=== PATIENT | female | born 1945 | race Caucasian/White ===

== ENCOUNTER 2024-12-09 09:55 | Inpatient (IN) | payer MEDICARE, SELFPAY ==
[2024-12-09] VITALS (12 sets, daily range): BP systolic 95–128; BP diastolic 63–92; PULSE 72–125; RESP 16–22; TEMP 36.4–36.9; O2SAT 96–98; BMI 39.5; BMI 39.1
--- NOTE | 2024-12-09 10:31 | EKG12_ITS ---
Test Reason : SOB Blood Pressure : */* mmHG Vent. Rate : 99 BPM Atrial Rate : * BPM P-R Int : * ms QRS Dur : 64 ms QT Int : 368 ms P-R-T Axes : * 57 97 degrees QTcB Int : 472 ms Atrial fibrillation with premature ventricular or aberrantly conducted complexes Abnormal ECG Confirmed by DEVENDRA HAUSER, LIAM ([id number]), continuity editor LEEANN NOBLES ([id number]) on 12/14/2024 7:13:16 AM Referred By: JESSENIA Confirmed By: LIAM RAMSAY MD
--- NOTE | 2024-12-09 10:35 | EDS_ITS ---
HPI History of Present Illness Chief Complaint: Shortness of Breath Informant: patient and family Narrative Narrative: Presents with daughter for dyspnea been going on for last few weeks. A week ago had chest pain overnight that resolved that same night. History of A-fib diagnosed a year ago followed by [facility] Dr. Ulloa. She is on Eliquis twice a day and has been taking her medications. She is on metoprolol tartrate 50 mg twice a day. She is on Lasix 20 mg daily however states has not been taking it as she should. She did take it this morning. Intermittent cough. She describes elective cardioversion this past July by her cardio logist. She states she was feeling good after her cardioversion. She does not feel her dysrhythmia. Denies racing heart or palpitations. Occasional lightheaded with standing. Reporting nontraumatic left-sided back pain also since before . Using ice and heat that does help. Using Tylenol. No pain down the legs. No dysuria no frequency. She reports 15 pound weight gain in the last month. Prior similar symptoms: Yes PFSH PFS Medical History Kidney stone Restless legs GERD (gastroesophageal reflux disease) Anxiety CHF (congestive heart failure) Afib Home Medications ?Medication ?Instructions ?Recorded ?Last Taken ?Type apixaban 5 mg tablet (Eliquis) 5 mg PO BID BLOOD THINNER 12/09/24 12/09/24 History clobetasol 0.05 % topical ointment 1 applic topical DAILY SKIN 12/09/24 12/08/24 History IRRITATION diphenhydramine 25 1 tab PO QHS PRN sleep 12/09/24 Unknown History mg-acetaminophen 500 mg tablet (Acetaminophen PM) fluoxetine 20 mg capsule 20 mg PO DAILY MOOD 12/09/24 12/09/24 History fluticasone propionate 50 1 spray intranasal BID PRN allergy 12/09/24 12/08/24 History mcg/actuation nasal symptoms spray,suspension (Flonase Allergy Relief) furosemide 20 mg tablet (Lasix) 20 mg PO DAILY FLUID RETENTION 12/09/24 12/08/24 History metoprolol tartrate 50 mg tablet 50 mg PO Q12H BLOOD PRESSURE 12/09/24 12/09/24 History pantoprazole 40 mg tablet,delayed 40 mg PO DAILY HEARTBURN 12/09/24 12/08/24 History release (Protonix) ropinirole 1 mg tablet 1 mg PO QHS RESTLESS LEG SYNDROME 12/09/24 12/08/24 History Allergy/AdvReac Type Severity Reaction Status Date / Time morphine Allergy Mild CHEST PAIN Verified 12/09/24 10:00 Family History (Updated 12/09/24 @ 13:57 by Ana Maria Jurado) Brother Pancreatic cancer Type 2 diabetes mellitus Sister Lupus Family History no significant family his Surgical History Hx of cholecystectomy Social History (Updated 12/09/24 @ 13:57 by Ana Maria Jurado) household members: none financial difficulty paying for basics: not very hard current occupational status: retired Smoking Status: Former smoker ROS ROS ED Constitutional Constitutional ED: Denies chills, fever(s) or sweats ENT ENT ED: Denies sore throat Cardiovascular Cardiovascular: Reports chest pain, leg edema and orthopnea; Denies palpitations or racing heartbeat Respiratory/Chest Respiratory/Chest: Reports cough, dyspnea and orthopnea; Denies dyspnea on exertion Gastrointestinal Gastrointestinal: Denies abdominal pain, diarrhea, nausea or vomiting Genitourinary Genitourinary ED: Denies dysuria, hematuria or urinary frequency Musculoskeletal Musculoskeletal: Reports back pain; Denies extremity pain or neck pain Integumentary Denies rash or wounds Neurologic Neurologic: Denies headache(s), paresthesias or weakness EXAM Physical Exam Const Vital Signs: 12/09/24 09:56 12/09/24 10:19 12/09/24 11:45 Temperature 97.5 F L Temperature Source Temporal Pulse Rate 107 H 96 Respiratory Rate 16 22 H Respiratory Effort Short of Breath Respiratory Depth Normal Respiratory Pattern Tachypnea Blood Pressure 126/92 H Blood Pressure Mean 103 Pulse Ox 98 96 Oxygen Delivery Method Room Air Room Air Positive well nourished and well developed General Appearance ED: well developed and NAD HEENT Reports moist mucous membranes normocephalic and atraumatic Eyes General Eye ED: Yes normal appearance of both eyes Neck full ROM Chest Wall Chest: Negative for tenderness Resp normal respiratory effort and normal air movement Effort and Inspection: symmetric chest movement; Negative for respiratory distress Cardio regular rate and no murmurs Rhythm: abnormal rhythm Peripheral Pulses: pulses 2+ throughout GI normal to inspection, nondistended, normoactive bowel sounds and non-tender Palpation: Negative for guarding or rebound tenderness present Extremity normal to inspection Extremity Narrative: Minimal lower extremity edema General Extremety ED: Yes edema; Negative for tenderness General Extremity: edema Neuro oriented x3 and no sensory deficits noted Sensorium / Orientation: awake and alert Skin no rashes or lesions noted and no wounds MDM MDM MDM Narrative Medical decision making narrative: Interventions / MDM: Differential diagnosis: CHF exacerbation, atrial fibrillation, hypoxia, flank pain, nephrolithiasis Diagnosis considered but do not suspect: Pulmonary embolism, pneumonia however image studies negative. My EKG interpretation: A-fib rate of 99, no ST or T wave changes. Imaging independently reviewed and interpreted by myself: 2 view chest x-ray: No pleural effusion also read by radiology. CTA chest: No PE, no infiltrates no effusion. CT abdomen pelvis IV contrast: Nephrolithiasis without obstructive process. External documents reviewed: MyChart on patient's phone BMP and echocardiogram. Test considered but not ordered:N/A ED course: Patient rate controlled A-fib afebrile 98% on room air. She describes orthopnea symptoms with leg swelling and weight gain. Likely recurrent A-fib after cardioversion she has not followed up with her associate director of sales. She states she was normal sinus after the cardioversion. Took her Eliquis and her Lasix today however decreased compliance with her diuretic. She had chest pain a week ago. Will check chest x-ray, labs cardiac enzyme and BNP. Urine sent due to her nontraumatic back pain. 1145: Chest x-ray no pleural effusion labs creatinine 1.23 with GFR of 45. No old for comparison however review from my chart on patient's phone May 2024 creatinine 0.96 GFR of 60. BNP 616. As noted no pleural effusion. She also had echocardiogram on MyChart from summer last year EF of 60%. Occult blood on her urine no infection. She has had a history of kidney stones. Discussed further workup with your back pain with CT scan for which she wishes to pursue. This was ordered. Will ambulate the patient with a pulse ox and reevaluate. 1155: Per nursing with ambulation patient dropped to 84% and was symptomatic. She is on Eliquis, lower suspicion for PE. However with her being sent for CT scan abdomen pelvis, will add CTA chest with the abdomen pelvis. Will need admission for hypoxia. 1250: CT angiogram chest negative for PE. No acute process. CT abdomen pelvis nephrolithiasis without obstructive process. Discussed with patient results. With her hypoxia will add additional dose of IV diuretics. Will discuss with hospitalist for admission. I spoke with Dr. Corral for admission. Re-evaluation: stable Disposition discussed with patient/family/significant other: Patient and daughter Case discussed with consulting clinician: Hospitalist This note was generated with [employer] dictation software. It may contain incorrect words, spelling, and punctuation that were not noted in checking the note before signing. Lab Data Attestation: I reviewed the patient's lab results. Labs: Laboratory Results - last 24 hr 12/09/24 12/09/24 10:43 12:53 WBC 7.1 RBC 3.61 L Hgb 10.1 L Hct 33.3 L MCV 92.2 MCH 28.0 MCHC 30.3 L RDW Std Deviation 47.5 H RDW Coeff of Kristian 14.0 Plt Count 293 MPV 9.4 Immature Gran % (Auto) 0.400 Neut % (Auto) 57.2 Lymph % (Auto) 26.7 [place] % (Auto) 10.5 H Eos % (Auto) 4.5 Baso % (Auto) 0.7 Absolute Neuts (auto) 4.1 Absolute Lymphs (auto) 1.89 Nucleated RBC % 0 Sodium 141 Potassium 3.9 Chloride 108 H Carbon Dioxide 28.0 Anion Gap 5 BUN 19 H Creatinine 1.23 H Estim Creat Clear Calc 46.03 Est GFR (MDRD) Af Amer 54 L Est GFR (MDRD) Non-Af 45 L BUN/Creatinine Ratio 15.4 Glucose 115 H Calcium 9.1 Troponin I High Sens 9 9 B-Natriuretic Peptide 616.6 H Urine Color Straw Urine Clarity Clear Urine pH 6.0 Ur Specific [place] 1.010 Urine Protein 15 H Urine Glucose (UA) Normal Urine Ketones Negative Urine Occult Blood 10 H Urine Nitrite Negative Urine Bilirubin Negative Urine Urobilinogen Normal Ur Leukocyte Esterase Negative Urine RBC 0 SEEN Urine WBC 0-5 SEEN Ur Squamous Epith Cells 0-5 SEEN Urine Bacteria 0 SEEN Urine Mucus 0 SEEN Radiography Diagnostic Testing: Clinical Impression(s) from Imaging Studies Chest X-Ray 12/09/24 11:00 IMPRESSION: No acute abnormality is seen. Electronically Signed: Vance Nino MD at 11:14 EST , Abdomen/Pelvis CT 12/09/24 11:57 IMPRESSION: Status post cholecystectomy. 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 Nonobstructive bilateral intrarenal calculi more prominent in the lower pole of the left kidney. Electronically Signed: Vance Nino MD at 12:38 EST , Chest CTA 12/09/24 11:57 IMPRESSION: Findings suggestive of minimal scarring in the lingular segment of the left upper lobe. Coronary artery calcification. Electronically Signed: Vance Nino MD at 12:39 EST , Discharge Plan Dx/Rx/DC Orders Clinical Impression: CHF exacerbation, Atrial fibrillation with normal ventricular rate, Hypoxia, Nephrolithiasis, Flank pain, Hematuria Disposition Disposition: Acute Care Hospital [facility] Discharge Date/Time: 12/09/24 13:20
[2024-12-09 10:48] LABS: Bacteria 0 SEEN /hpf (None Seen); Mucous, Urine 0 SEEN /hpf (<or=2+); Red Blood Cells-Urine 0 SEEN /hpf (0-5)
[2024-12-09 10:54] LABS: Absolute Lymphocyte Count 1.89 X10^3/uL (0.83-4.51); Absolute Neutrophil Count 4.1 X10^3/uL (2.0-7.7); Basophil# 0.05 X10^3/uL; Basophil% 0.7 % (0-1); Eosinophil# 0.32 X10^3/uL; Eosinophils% 4.5 % (0-5); Hematocrit 33.3 % (37-47); Hemoglobin 10.1 g/dL (12.0-15.0); Lymphocyte # 1.89 X10^3/ul (0.83-4.51); Lymphocyte % 26.7 % (19-41); Mean Corp Hgb Conc 30.3 g/dL (32-36); Mean Corpuscular Volume 92.2 fL (81-99); Mean Platelet Vol. 9.4 fl (6.2-12.0); Monocyte# 0.74 X10^3/uL; Monocyte% 10.5 % (0-10); NRBC Flagged by Analyzer 0 % (0-5); Neutrophil # 4.05 X10^3/uL (2.7-7.7); Neutrophil % 57.2 % (47-70); Platelet Count 293 K/mm3 (150-450); RBC Distribution Width SD 47.5 fl (35.1-43.9); Red Blood Count 3.61 M/mm3 (4.2-5.4); White Blood Count 7.1 K/mm3 (4.4-11.0)
[2024-12-09 10:57] LABS: Color, Urine Straw (Yellow); Glucose, Dipstick Normal (Normal); Ketone-Dipstick Negative (Negative); Leukocyte Esterase-Dipstick Negative /ul (Negative); Nitrite-Dipstick Negative (Negative); Occult Blood-Urine 10 /ul (Negative); Protein-Dipstick 15 mg/dl (Negative); Urine Bilirubin Dipstick Negative (Negative); Urine Clarity Clear (Clear); Urine Urobilinogen Normal (Normal)
--- NOTE | 2024-12-09 11:00 | RAD_ITS ---
STUDY: X-RAY CHEST REASON FOR EXAM: Female, 79 years old. Sob TECHNIQUE: PA and lateral views of the chest. COMPARISON: None. FINDINGS: EKG electrodes are seen. The lungs are clear and expanded. There is no demonstrated pleural abnormality. Normal size heart. Normal mediastinum and dre. Normal visualized pulmonary arteries. There is atherosclerotic calcification of the aortic arch with tortuosity. There is demineralization of the osseous structures. Normal visualized ribs, clavicles, and shoulders. There is no demonstrated abnormality of the visualized soft tissue structures of the upper abdomen. RAD/Chest PA and Lateral IMPRESSION: No acute abnormality is seen. Electronically Signed: Vance Nino MD at 11:14 EST ,
[2024-12-09 11:08] LABS: Anion Gap 5 (5-15); BUN 19 mg/dL (7-18); BUN/Creat Ratio 15.4 RATIO (10-20); Calcium,Total 9.1 mg/dL (8.5-10.1); Chloride 108 mmol/L (98-107); Creatinine, Serum 1.23 mg/dL (0.55-1.02); EST Glomerular Filtration Rate 45 mL/min (>60); Est Glom Filt Rate - Afr Amer 54 mL/min (>60); Estimated Creatinine Clearance 46.03 ml/min; Glucose 115 mg/dL (74-106); Potassium 3.9 mmol/L (3.5-5.1); Sodium Level 141 mmol/L (136-145); Troponin-I HS (w/2H Reflex) 9 pg/mL (3.0-54.0)
[2024-12-09 11:16] LABS: BNP,B-Type NATRIURETIC PEPTIDE 616.6 pg/mL (0-100)
[2024-12-09 11:46] LABS: Squamous Epithelial Cells - UA 0-5 SEEN /hpf (5-10); White Blood Cells 0-5 SEEN /hpf (0-5)
--- NOTE | 2024-12-09 11:57 | CT_ITS ---
STUDY: CTA CHEST REASON FOR EXAM: Female, 79 years old. Hypoxia RADIATION DOSAGE (If Supplied By Facility): CTDIvol = ( 18.8 ) mGy, DLP = ( 736.74 ) mGycm TECHNIQUE: The examination was performed with the intravenous administration of IV 100mL Isovue-370. Post-processing of the angiographic images was performed, with multiplanar reformation and 3D reconstruction. Individualized dose optimization techniques were used for this CT. COMPARISON: None. FINDINGS: Normal enhancement of the main pulmonary artery and right and left pulmonary arteries. Normal enhancement of the bilateral peripheral pulmonary arteries. There is no demonstrated pulmonary embolism. Normal thoracic aorta and visualized great vessels. There is no demonstrated aortic dissection. There are calcifications of the coronary arteries. Normal mediastinum. Normal hilar regions. Normal visualized trachea and bronchi. The lungs are well expanded. Minimal increased markings in the lingula segment of the left upper lobe suggestive of a linear scarring. Normal pleura. Normal chest wall structures. There are degenerative changes of thoracic spine. Normal visualized upper abdomen. CT/CTA Chest W/WO Contrast IMPRESSION: Findings suggestive of minimal scarring in the lingular segment of the left upper lobe. Coronary artery calcification. Electronically Signed: Vance Nino MD at 12:39 EST ,
--- NOTE | 2024-12-09 11:57 | CT_ITS ---
STUDY: CT ABDOMEN AND PELVIS WITH CONTRAST REASON FOR EXAM: Female, 79 years old. Flank pain, hematuria. 15 pound weight gain. Back pain. RADIATION DOSAGE (If Supplied By Facility): CTDIvol = ( 23.82 ) mGy, DLP = ( 1164.64 ) mGycm TECHNIQUE: Transaxial images were obtained from the dome of the diaphragm to the symphysis pubis without oral contrast. IV 100mL Isovue-370 was administered. Sagittal and coronal images were reconstructed. Individualized dose optimization techniques were used for this CT. COMPARISON: None. FINDINGS: Minimal increased linear markings suggest some mild linear scarring. Coronary artery calcification. There is decreased attenuation of the liver consistent with steatosis. The patient is status post cholecystectomy. Normal spleen. Normal pancreas. Varices seen in the lesser curvature of the stomach. Normal bilateral adrenal glands. There is a 8.7 mm calculus in the lower pole calyx of the left kidney. Tiny calculus in the lower pole of the right kidney There is a small hiatal hernia. Normal small intestine. There are multiple colonic diverticula consistent with diverticulosis. The appendix is visualized and appears normal. There is diffuse atherosclerotic calcification of the abdominal aorta and visceral branches, without a demonstrated aneurysm. Normal inferior vena cava. There is a small retroperitoneal lymphadenopathy with enlarged nodes no greater than 10mm in the short axis diameter. Normal urinary bladder. Small bilateral benign-appearing inguinal lymph nodes. Normal abdominal wall. There are degenerative changes of the visualized lumbar spine. CT/Abdomen/Pelvis W IV Cont ONLY IMPRESSION: Status post cholecystectomy. 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 Nonobstructive bilateral intrarenal calculi more prominent in the lower pole of the left kidney. Electronically Signed: Vance Nino MD at 12:38 EST ,
[2024-12-09 12:46] LABS: Reflex Troponin-HS? (from REC) Y
[2024-12-09] MEDS: Furosemide 40 MG/4 ML Vial IV ×3 (13:04→21:03)
--- NOTE | 2024-12-09 13:12 | HP.PCM.HOS_ITS ---
HPI - General HPI Narrative CECILIA CALABRESE, is a 79 F who presents [facility] Medical History Kidney stone Restless legs GERD (gastroesophageal reflux disease) Anxiety CHF (congestive heart failure) Afib Home Medications ?Medication ?Instructions ?Recorded ?Last Taken ?Type apixaban 5 mg tablet (Eliquis) 5 mg PO BID 12/09/24 Unknown History clobetasol 0.05 % topical ointment 1 applic topical DAILY 12/09/24 Unknown History fluoxetine 20 mg capsule 20 mg PO DAILY 12/09/24 Unknown History fluticasone propionate 50 1 spray intranasal BID PRN allergy 12/09/24 Unknown History mcg/actuation nasal symptoms spray,suspension (Flonase Allergy Relief) furosemide 20 mg tablet (Lasix) 20 mg PO DAILY 12/09/24 Unknown History metoprolol tartrate 50 mg tablet 50 mg PO Q12H 12/09/24 Unknown History pantoprazole 40 mg tablet,delayed 40 mg PO DAILY 12/09/24 Unknown History release (Protonix) ropinirole 1 mg tablet 1 mg PO QHS 12/09/24 Unknown History Allergy/AdvReac Type Severity Reaction Status Date / Time morphine Allergy Mild CHEST PAIN Verified 12/09/24 10:00 Family History no significant family his Surgical History Hx of cholecystectomy Social History household members: none current occupational status: retired Smoking Status: Former smoker Vital Signs Vital Signs Vital Signs: 12/09/24 09:56 12/09/24 10:19 12/09/24 11:45 Temperature 97.5 F L Temperature Source Temporal Pulse Rate 107 H 96 Respiratory Rate 16 22 H Respiratory Effort Short of Breath Respiratory Depth Normal Respiratory Pattern Tachypnea Blood Pressure 126/92 H Blood Pressure Mean 103 Pulse Ox 98 96 Oxygen Delivery Method Room Air Room Air 12/09/24 13:00 12/09/24 13:09 Temperature 97.9 F Temperature Source Pulse Rate 110 H 110 H Respiratory Rate 21 H 21 H Respiratory Effort Respiratory Depth Respiratory Pattern Blood Pressure 128/90 H 128/90 H Blood Pressure Mean 102 102 Pulse Ox 98 98 Oxygen Delivery Method Room Air Weight Weight: 107.864 kg Body Mass Index (BMI) 39.5 Results Lab / Micro Data 12/09/24 10:43 12/09/24 10:43 Labs: Laboratory Results - last 24 hr 12/09/24 10:43: WBC 7.1, RBC 3.61 L, Hgb 10.1 L, Hct 33.3 L, MCV 92.2, MCH 28.0, MCHC 30.3 L, RDW Std Deviation 47.5 H, RDW Coeff of Kristian 14.0, Plt Count 293, MPV 9.4, Immature Gran % (Auto) 0.400, Neut % (Auto) 57.2, Lymph % (Auto) 26.7, [place] % (Auto) 10.5 H, Eos % (Auto) 4.5, Baso % (Auto) 0.7, Absolute Neuts (auto) 4.1, Absolute Lymphs (auto) 1.89, Nucleated RBC % 0, Sodium 141, Potassium 3.9, C hloride 108 H, Carbon Dioxide 28.0, Anion Gap 5, BUN 19 H, Creatinine 1.23 H, Estim Creat Clear Calc 46.03, Est GFR (MDRD) Af Amer 54 L, Est GFR (MDRD) Non-Af 45 L, BUN/Creatinine Ratio 15.4, Glucose 115 H, Calcium 9.1, Troponin I High Sens 9, B-Natriuretic Peptide 616.6 H, Urine Color Straw, Urine Clarity Clear, Urine pH 6.0, Ur Specific [place] 1.010, Urine Protein 15 H, Urine Glucose (UA) Normal, Urine Ketones Negative, Urine Occult Blood 10 H, Urine Nitrite Negative, Urine Bilirubin Negative, Urine Urobilinogen Normal, Ur Leukocyte Esterase Negative, Urine RBC 0 SEEN, Urine WBC 0-5 SEEN, Ur Squamous Epith Cells 0-5 SEEN, Urine Bacteria 0 SEEN, Urine Mucus 0 SEEN Imaging Radiology Impression Chest X-Ray 12/09/24 11:00 IMPRESSION: No acute abnormality is seen. Electronically Signed: Vance Nino MD at 11:14 EST , Abdomen/Pelvis CT 12/09/24 11:57 IMPRESSION: Status post cholecystectomy. 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 Nonobstructive bilateral intrarenal calculi more prominent in the lower pole of the left kidney. Electronically Signed: Vance Nino MD at 12:38 EST , Chest CTA 12/09/24 11:57 IMPRESSION: Findings suggestive of minimal scarring in the lingular segment of the left upper lobe. Coronary artery calcification. Electronically Signed: Vance Nino MD at 12:39 EST ,
--- NOTE | 2024-12-09 13:12 | PCM.HP.STD ---
HPI - General General Date of Admission: 12/09/24 Date of Service: 12/09/24 Chief Complaint: Shortness of breath HPI Narrative CECILIA CALABRESE, is a 79 F with past medical history signal for paroxysmal atrial fibrillation, chronic congestive heart failure with preserved ejection fraction who presented with shortness of breath. Per patient symptoms have been ongoing for the past couple of weeks. Patient has noticed increasing shortness of breath with minimal activity. Patient also did complain of swelling involving both lower extremities. Patient elected to present to the emergency department due to worsening symptoms. On further questioning patient admitted to not being compliant with therapy including her Lasix. Workup in the ED came back consistent with acute congestive heart failure admitted to a monitored bed for further management [facility] Medical History Kidney stone Restless legs GERD (gastroesophageal reflux disease) Anxiety CHF (congestive heart failure) Afib Home Medications ?Medication ?Instructions ?Recorded ?Last Taken ?Type apixaban 5 mg tablet (Eliquis) 5 mg PO BID BLOOD THINNER 12/09/24 12/09/24 History clobetasol 0.05 % topical ointment 1 applic topical DAILY SKIN 12/09/24 12/08/24 History IRRITATION diphenhydramine 25 1 tab PO QHS PRN sleep 12/09/24 Unknown History mg-acetaminophen 500 mg tablet (Acetaminophen PM) fluoxetine 20 mg capsule 20 mg PO DAILY MOOD 12/09/24 12/09/24 History fluticasone propionate 50 1 spray intranasal BID PRN allergy 12/09/24 12/08/24 History mcg/actuation nasal symptoms spray,suspension (Flonase Allergy Relief) furosemide 20 mg tablet (Lasix) 20 mg PO DAILY FLUID RETENTION 12/09/24 12/08/24 History metoprolol tartrate 50 mg tablet 50 mg PO Q12H BLOOD PRESSURE 12/09/24 12/09/24 History pantoprazole 40 mg tablet,delayed 40 mg PO DAILY HEARTBURN 12/09/24 12/08/24 History release (Protonix) ropinirole 1 mg tablet 1 mg PO QHS RESTLESS LEG SYNDROME 12/09/24 12/08/24 History Allergy/AdvReac Type Severity Reaction Status Date / Time morphine Allergy Mild CHEST PAIN Verified 12/09/24 10:00 Family History (Updated 12/09/24 @ 13:57 by Ana Maria Jurado) Brother Pancreatic cancer Type 2 diabetes mellitus Sister Lupus Family History no significant family his Surgical History Hx of cholecystectomy Social History (Updated 12/09/24 @ 13:57 by Ana Maria Jurado) household members: none financial difficulty paying for basics: not very hard current occupational status: retired Smoking Status: Former smoker ROS ROS Narrative GENERAL: denies fever, chills, night sweats, HEENT: denies headache, sinus congestion, RESPIRATORY: shortness of breath, dyspnea on exertion CARDIAC: denies chest pain, palpitations, orthopnea, GASTROINTESTINAL: denies abdominal pain, nausea, GENITOURINARY: denies dysuria, urgency, frequency, EXTREMITY: denies swelling MUSCULOSKELETAL: denies current joint pain or tenderness NEUROLOGIC: denies focal numbness, weakness, tingling HEMATOLOGIC: denies easy bruising and/or hemorrhage INTEGUMENT: denies rashes PSYCHIATRIC: denies suicidal or homicidal ideation Vital Signs Vital Signs Vital Signs: 12/09/24 09:56 12/09/24 10:19 12/09/24 11:45 Temperature 97.5 F L Temperature Source Temporal Pulse Rate 107 H 96 Respiratory Rate 16 22 H Respiratory Effort Short of Breath Respiratory Depth Normal Respiratory Pattern Tachypnea Blood Pressure 126/92 H Blood Pressure Mean 103 Pulse Ox 98 96 Oxygen Delivery Method Room Air Room Air 12/09/24 13:00 12/09/24 13:09 Temperature 97.9 F Temperature Source Pulse Rate 110 H 110 H Respiratory Rate 21 H 21 H Respiratory Effort Respiratory Depth Respiratory Pattern Blood Pressure 128/90 H 128/90 H Blood Pressure Mean 102 102 Pulse Ox 98 98 Oxygen Delivery Method Room Air Weight Weight: 107.864 kg Body Mass Index (BMI) 39.5 Physical Exam Narrative GENERAL: cooperative HEENT: Atraumatic; normocephalic EYES; Anicteric, Normal Conjunctiva NECK; supple, normal thyroid, RESPIRATORY: Diminished to auscultation CARDIOVASCULAR: Irregularly irregular, tachycardic GI: soft, normoactive bowel sounds, : No Renal angle tenderness; EXTREMITIES: sera, no clubbing, MUSCULOSKELETAL: no muscle wasting NEURO: Awake; no lateralizing signs. SKIN: No Rash PSYCH; Flat affect Results Lab / Micro Data 12/09/24 10:43 12/09/24 10:43 Labs: Laboratory Results - last 24 hr 12/09/24 10:43: WBC 7.1, RBC 3.61 L, Hgb 10.1 L, Hct 33.3 L, MCV 92.2, MCH 28.0, MCHC 30.3 L, RDW Std Deviation 47.5 H, RDW Coeff of Kristian 14.0, Plt Count 293, MPV 9.4, Immature Gran % (Auto) 0.400, Neut % (Auto) 57.2, Lymph % (Auto) 26.7, Bertie % (Auto) 10.5 H, Eos % (Auto) 4.5, Baso % (Auto) 0.7, Absolute Neuts (auto) 4.1, Absolute Lymphs (auto) 1.89, Nucleated RBC % 0, Sodium 141, Potassium 3.9, Chloride 108 H, Carbon Dioxide 28.0, Anion Gap 5, BUN 19 H, Creatinine 1.23 H, Estim Creat Clear Calc 46.03, Est GFR (MDRD) Af Amer 54 L, Est GFR (MDRD) Non-Af 45 L, BUN/Creatinine Ratio 15.4, Glucose 115 H, Calcium 9.1, Troponin I High Sens 9, B-Natriuretic Peptide 616.6 H, Urine Color Straw, Urine Clarity Clear, Urine pH 6.0, Ur Specific [place] 1.010, Urine Protein 15 H, Urine Glucose (UA) Normal, Urine Ketones Negative, Urine Occult Blood 10 H, Urine Nitrite Negative, Urine Bilirubin Negative, Urine Urobilinogen Normal, Ur Leukocyte Esterase Negative, Urine RBC 0 SEEN, Urine WBC 0-5 SEEN, Ur Squamous Epith Cells 0-5 SEEN, Urine Bacteria 0 SEEN, Urine Mucus 0 SEEN Imaging Radiology Impression Chest X-Ray 12/09/24 11:00 IMPRESSION: No acute abnormality is seen. Electronically Signed: Vance Nino MD at 11:14 EST , Abdomen/Pelvis CT 12/09/24 11:57 IMPRESSION: Status post cholecystectomy. 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 Nonobstructive bilateral intrarenal calculi more prominent in the lower pole of the left kidney. Electronically Signed: Vance Nino MD at 12:38 EST , Chest CTA 12/09/24 11:57 IMPRESSION: Findings suggestive of minimal scarring in the lingular segment of the left upper lobe. Coronary artery calcification. Electronically Signed: Vance Nino MD at 12:39 EST , Assessment & Plan Assessment/Plan (1) Nephrolithiasis: (2) Flank pain: (3) Hematuria: (4) Atrial fibrillation with normal ventricular rate: (5) CHF exacerbation: PLAN: Plan Patient is a 79-year-old lady presenting with progressive shortness of breath and bipedal edema 1. Acute on chronic congestive heart failure with preserved ejection fraction ? Patient has been admitted to monitored bed management initiated with fluid restriction, strict input and output, daily weights, diuretic therapy. Ordered echo for EF assessment. Also ordered serial cardiac enzymes to rule out ischemia as a possible frustrating course. Patient was counseled on the need to be compliant with therapy including fluid salts and medications. 2. Paroxysmal A-fib with variable rates ? Patient is on metoprolol for rate control as well as apixaban for systemic anticoagulation did continue with both 3. Hematuria ? Secondary to nephrolithiasis CT of the abdomen and pelvis demonstrated nonobstructing bilateral intrarenal calculi more prominent in the lower pole of the left kidney 4. Hypertension ? Blood pressure controlled, home medications continued with dose adjustment as needed 5. GERD ? Patient is on PPI continue 6. Class II obesity with BMI of 39.1 ? Complicating care weight loss advised 7. Restless leg syndrome ? Patient is on ropinirole 8. Allergic rhinitis ? Patient is on fluticasone did continue 9. Anemia ? Secondary to chronic disorder. Did order for iron studies as well as B12 levels. Subsequently monitoring H&H and transfuse if patient becomes symptomatic or hemoglobin falls below 7 10. Renal failure ? Chronicity uncertain patient does not have any old records to compare with monitoring with daily BMPs 11. DVT prophylaxis ? On apixaban Time spent in the patient's overall evaluation,decision-making process, review of diagnostic data, adjustment of management, discussion with other providers, nursing nursing and ancillary staff involved in patient's care documentation, 75 Minutes Advance planning; did discuss with the patient and family regarding advanced directives as well as CODE STATUS. Did explain the various scenarios involved ( FULL CODE, DNR CCA, DNR CCA with no intubation, and DNR CC and what each meant) patient elected to remain full code with CPR and intubation if warranted n. Order was placed. Time spent on discussion 16 minutes. Charges/Coding Multi Select Codes Visit Charges Visit Charges: 19186 [facility] Hospitalists' Procedures Procedures: 87131 Advncd Care Plan 30 Min
[2024-12-09 13:15] LABS: Troponin-I HS 9 pg/mL (3.0-54.0)
--- NOTE | 2024-12-09 13:38 | ECHOCS_ITS ---
Version 2 Reason For Study: Dyspnea/SOB Procedure This was a 2D Doppler, Color Flow transthoracic echocardiogram. The study was technically difficult. Contrast injection was performed. Exam performed portable in patient room. Left Ventricle Normal LV size. The estimated ejection fraction is 65 %. Diastolic function is indeterminate. No regional wall motion abnormalities noted. Right Ventricle Normal RV size. Normal systolic function. Atria There is mild biatrial dilatation. Hypermobile atrial septum. Bubble contrast study is negative for PFO/ASD. Mitral Valve There is no mitral valve stenosis. No mitral valve insufficiency. Tricuspid Valve There is no tricuspid stenosis. Mild tricuspid valve insufficiency. Pulmonary artery systolic pressure is 50 mmHg. Aortic Valve Trisinus/trileaflet aortic valve. There is no aortic stenosis. No aortic valve insufficiency. Pulmonic Valve
[2024-12-09] MEDS: Metoprolol Tartrate 50 MG Tablet PO (17:16)
[2024-12-09 17:34] LABS: Troponin-I HS 9 pg/mL (3.0-54.0)
[2024-12-09] MEDS: dilTIAZem CD 120 MG Capsule PO (18:54)
[2024-12-09] MEDS: APIXABAN 5 MG TABLET PO (21:03)
[2024-12-09] MEDS: Acetaminophen 325 MG Tablet 650 MG PO (21:03)
[2024-12-09] MEDS: Pramipexole Di-HCl 0.5 MG Tablet PO (21:03)
[2024-12-09] MEDS: MELATONIN 3 MG TABLET PO (21:03)
[2024-12-10 03:02] VITALS: BP 107/54; PULSE 101; RESP 15; TEMP 36.9; O2SAT 95
[2024-12-10] MEDS: Furosemide 40 MG/4 ML Vial IV ×3 (05:33→20:38)
[2024-12-10 06:54] LABS: Absolute Neutrophil Count 3.9 X10^3/uL (2.0-7.7); Basophil# 0.03 X10^3/uL; Basophil% 0.5 % (0-1); Eosinophil# 0.27 X10^3/uL; Eosinophils% 4.1 % (0-5); Hematocrit 29.6 % (37-47); Hemoglobin 9.3 g/dL (12.0-15.0); Lymphocyte % 24.2 % (19-41); Mean Corp Hgb Conc 31.4 g/dL (32-36); Mean Corpuscular Hgb 27.9 pg (27.0-32.0); Mean Corpuscular Volume 88.9 fL (81-99); Mean Platelet Vol. 10.2 fl (6.2-12.0); Monocyte# 0.76 X10^3/uL; Monocyte% 11.5 % (0-10); NRBC Flagged by Analyzer 0 % (0-5); Neutrophil # 3.94 X10^3/uL (2.7-7.7); Neutrophil % 59.4 % (47-70); Platelet Count 264 K/mm3 (150-450); RBC Distribution Width CV 13.9 % (11.6-14.6); RBC Distribution Width SD 45.1 fl (35.1-43.9); Red Blood Count 3.33 M/mm3 (4.2-5.4); White Blood Count 6.6 K/mm3 (4.4-11.0)
--- NOTE | 2024-12-10 07:46 | PCM.PN.HOSP ---
Reason for Visit Reason for Visit: Diagnoses Unspecified atrial fibrillation (12/09/24) Heart failure, unspecified (12/09/24) Calculus of kidney (12/09/24) Unspecified abdominal pain (12/09/24) Hematuria, unspecified (12/09/24) Subjective Subjective Patient is a 79-year-old lady admitted with progressive shortness of breath diagnosed with acute congestive heart failure. Patient also has history of paroxysmal A-fib heart rate has been ranging from 110-140 added Cardizem to her treatment regimen. Diagnostic data reviewed this a.m. significant for magnesium of 1.3 additional replacement Objective Data Objective Data Vital Signs: Vital Signs Temp Pulse Resp BP Pulse Ox O2 Del Method 98.5 F 101 H 15 107/54 L 95 Room Air 12/10/24 03:02 12/10/24 03:02 12/10/24 03:02 12/10/24 03:02 12/10/24 03:02 12/10/24 03:02 Oxygen Delivery Method Room Air Weight: 106.7 kg Body Mass Index (BMI) 39.1 Intake & Output: Intake and Output for Last 24 Hours 12/08/24 12/09/24 12/10/24 23:59 23:59 23:59 Intake Total 755 / 755 150 / 150 Output Total 300 / 300 Balance 455 / 455 150 / 150 Lab / Micro Data 12/10/24 05:40 12/10/24 05:40 Labs: Laboratory Results - last 24 hr 12/09/24 10:43: WBC 7.1, RBC 3.61 L, Hgb 10.1 L, Hct 33.3 L, MCV 92.2, MCH 28.0, MCHC 30.3 L, RDW Std Deviation 47.5 H, RDW Coeff of Kristian 14.0, Plt Count 293, MPV 9.4, Immature Gran % (Auto) 0.400, Neut % (Auto) 57.2, Lymph % (Auto) 26.7, [place] % (Auto) 10.5 H, Eos % (Auto) 4.5, Baso % (Auto) 0.7, Absolute Neuts (auto) 4.1, Absolute Lymphs (auto) 1.89, Nucleated RBC % 0, Sodium 141, Potassium 3.9, Chloride 108 H, Carbon Dioxide 28.0, Anion Gap 5, BUN 19 H, Creatinine 1.23 H, Estim Creat Clear Calc 46.03, Est GFR (MDRD) Af Amer 54 L, Est GFR (MDRD) Non-Af 45 L, BUN/Creatinine Ratio 15.4, Glucose 115 H, Calcium 9.1, Troponin I High Sens 9, B-Natriuretic Peptide 616.6 H, Urine Color Straw, Urine Clarity Clear, Urine pH 6.0, Ur Specific [place] 1.010, Urine Protein 15 H, Urine Glucose (UA) Normal, Urine Ketones Negative, Urine Occult Blood 10 H, Urine Nitrite Negative, Urine Bilirubin Negative, Urine Urobilinogen Normal, Ur Leukocyte Esterase Negative, Urine RBC 0 SEEN, Urine WBC 0-5 SEEN, Ur Squamous Epith Cells 0-5 SEEN, Urine Bacteria 0 SEEN, Urine Mucus 0 SEEN 12/09/24 12:53: Troponin I High Sens 9 12/09/24 16:38: Troponin I High Sens 9 12/10/24 05:40: WBC 6.6, RBC 3.33 L, Hgb 9.3 L, Hct 29.6 L, MCV 88.9, MCH 27.9, MCHC 31.4 L, RDW Std Deviation 45.1 H, RDW Coeff of Kristian 13.9, Plt Count 264, MPV 10.2, Immature Gran % (Auto) 0.300, Neut % (Auto) 59.4, Lymph % (Auto) 24.2, [place] % (Auto) 11.5 H, Eos % (Auto) 4.1, Baso % (Auto) 0.5, Absolute Neuts (auto) 3.9, Absolute Lymphs (auto) 1.60, Nucleated RBC % 0 Radiography Diagnostic Testing: Radiology Impression Chest X-Ray 12/09/24 11:00 IMPRESSION: No acute abnormality is seen. Electronically Signed: Vance Nino MD at 11:14 EST , Abdomen/Pelvis CT 12/09/24 11:57 IMPRESSION: Status post cholecystectomy. 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 Nonobstructive bilateral intrarenal calculi more prominent in the lower pole of the left kidney. Electronically Signed: Vance Nino MD at 12:38 EST , Chest CTA 12/09/24 11:57 IMPRESSION: Findings suggestive of minimal scarring in the lingular segment of the left upper lobe. Coronary artery calcification. Electronically Signed: Vance Nino MD at 12:39 EST , Physical Exam Narrative GENERAL: cooperative HEENT: Atraumatic; normocephalic EYES; Anicteric, Normal Conjunctiva NECK; supple, normal thyroid, RESPIRATORY: Diminished to auscultation CARDIOVASCULAR: Irregularly irregular, tachycardic GI: soft, normoactive bowel sounds, : No Renal angle tenderness; EXTREMITIES: sera, no clubbing, MUSCULOSKELETAL: no muscle wasting NEURO: Awake; no lateralizing signs. SKIN: No Rash PSYCH; Flat affect Assessment & Plan Assessment/Plan (1) Nephrolithiasis: (2) Flank pain: (3) Hematuria: (4) Atrial fibrillation with normal ventricular rate: (5) CHF exacerbation: PLAN: Plan Patient is a 79-year-old lady presenting with progressive shortness of breath and bipedal edema 1. Acute on chronic congestive heart failure with preserved ejection fraction ? Patient has been admitted to monitored bed management initiated with fluid restriction, strict input and output, daily weights, diuretic therapy. Ordered echo for EF assessment. Also ordered serial cardiac enzymes to rule out ischemia as a possible frustrating course. Patient was counseled on the need to be compliant with therapy including fluid restriction and medications. ? 12/10/2024; patient responded to diuretic therapy. Echo was ordered on admission results pending 2. Paroxysmal A-fib with variable rates ? Patient is on metoprolol for rate control as well as apixaban for systemic anticoagulation did continue with both 12/10/2024; patient heart rates not well-controlled I did Cardizem to treatment regimen 3. Hematuria ? Secondary to nephrolithiasis CT of the abdomen and pelvis demonstrated nonobstructing bilateral intrarenal calculi more prominent in the lower pole of the left kidney 4. Hypertension ? Blood pressure controlled, home medications continued with dose adjustment as needed 5. GERD ? Patient is on PPI continue 6. Class II obesity with BMI of 39.1 ? Complicating care weight loss advised 7. Restless leg syndrome ? Patient is on ropinirole 8. Allergic rhinitis ? Patient is on fluticasone did continue 9. Anemia ? Secondary to chronic disorder. Did order for iron studies as well as B12 levels. Subsequently monitoring H&H and transfuse if patient becomes symptomatic or hemoglobin falls below 7 10. Renal failure ? Chronicity uncertain patient does not have any old records to compare with monitoring with daily BMPs ? 12/10/2024; slight improvement in kidney function 11. DVT prophylaxis ? On apixaban 12. Hypomagnesemia -Corrected for protocol, repeat labs ordered in a.m. for follow-up Time spent in the patient's overall evaluation,decision-making process, review of diagnostic data, adjustment of management, discussion with other providers, nursing nursing and ancillary staff involved in patient's care documentation, 50 Minutes Charges/Coding Visit Charges Inpatient E&M: 10883 Subs Hosp L3
[2024-12-10 07:48] LABS: Anion Gap 9 (5-15); BUN 22 mg/dL (7-18); BUN/Creat Ratio 19.3 RATIO (10-20); Calcium,Total 9.1 mg/dL (8.5-10.1); Chloride 103 mmol/L (98-107); Creatinine, Serum 1.14 mg/dL (0.55-1.02); EST Glomerular Filtration Rate 49 mL/min (>60); Est Glom Filt Rate - Afr Amer 59 mL/min (>60); Estimated Creatinine Clearance 49.36 ml/min; Glucose 121 mg/dL (74-106); Magnesium 1.3 mg/dL (1.6-2.6); Phosphorus 3.7 mg/dL (2.5-4.9); Potassium 3.5 mmol/L (3.5-5.1); Sodium Level 139 mmol/L (136-145)
[2024-12-10] MEDS: FLUoxetine 20 MG Capsule PO (08:59)
[2024-12-10 09:00] VITALS: BP 105/56; PULSE 97; RESP 16; TEMP 36.4; O2SAT 94
[2024-12-10] MEDS: dilTIAZem CD 120 MG Capsule PO ×2 (09:00→20:36)
[2024-12-10] MEDS: Pantoprazole Sodium 40 MG Tablet PO (09:00)
[2024-12-10] MEDS: Metoprolol Tartrate 50 MG Tablet PO ×2 (09:00→20:37)
[2024-12-10] MEDS: APIXABAN 5 MG TABLET PO ×2 (09:00→20:36)
[2024-12-10] MEDS: Magnesium Sulfate 2 GM in Dextrose 5%-Water (100mL Bag) 100 ML IV (11:24)
--- NOTE | 2024-12-10 13:15 | CASEMGMT ---
RN SUBHA TECHNICAL SALES SUPPORT MANAGER SUBHA?to room to meet with patient for initial transition planning/care coordination assessment. RN CM?introduced self and role at [facility]. Pt voices understanding and consents to assessment?at this time. Pt up ad jeff in room when RN SUBHA entered room. Pt then sat on edge of bed during assessment. Pt is A/O at this time and answers all questions appropriately. Care providers, pharmacy, and demographics verified/updated at this time. Strata:?1 PCP: Dr Soriano Specialists: Dr Ulloa, geospatial applications developer @ [facility]. He also goes to [place], [place]. 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 Dtr's name is Monica. Living Arrangements: Lives alone in one-story home w/basement where the laundry is. Dtr has been assisting with the laundry. Pt is independent w/ADL's and all other IADL's and manages her own medications. Transportation:?Pt states drives self and states no transportation concerns at this time. Dtr, Monica, will take her home @ dc. DME: Denies using any DME and denies needs. She states she does have a gadget she ordered off of [employer] that checks her HR and connects to her phone. Pt states no need for further DME at this time. She does not have home O2. Is currently on RA. Pt states if it would be needed @ dc, she has no preference of DME co. HHC/SNF: No hx. No needs identified. Pt Link: Discussed Pt Link with pt and she is interested in this. Referral placed. Pt wishes to return home and states has no concerns with going home at time of discharge. CM?to follow for any further discharge planning/needs. Pt voices no further concerns/needs at this time. Advised pt to ask for CM?if any further questions/concerns/needs arise. Voices understanding. PLAN: Home w/Pt Link Arielle PEREZ RN, CM
[2024-12-10 14:23] VITALS: BP 91/48; PULSE 68; RESP 16; TEMP 36.4; O2SAT 96
[2024-12-10] MEDS: Magnesium Chloride 64 MG Delay Rel.Tablet 128 MG PO (20:36)
[2024-12-10 20:37] VITALS: BP 129/72; PULSE 82
[2024-12-10] MEDS: Pramipexole Di-HCl 0.5 MG Tablet PO (20:38)
[2024-12-10] MEDS: MELATONIN 3 MG TABLET PO (20:54)
[2024-12-10 21:00] VITALS: BP 129/72; PULSE 82; RESP 20; TEMP 36.8; O2SAT 97
[2024-12-11 06:00] VITALS: BP 111/60; PULSE 106; RESP 16; TEMP 36.6; O2SAT 96
[2024-12-11] MEDS: Furosemide 40 MG/4 ML Vial IV (06:02)
[2024-12-11 07:27] VITALS: O2SAT 96
--- NOTE | 2024-12-11 08:06 | PCM.PN.HOSP ---
Reason for Visit Reason for Visit: Diagnoses Unspecified atrial fibrillation (12/09/24) Heart failure, unspecified (12/09/24) Calculus of kidney (12/09/24) Unspecified abdominal pain (12/09/24) Hematuria, unspecified (12/09/24) Subjective Subjective Patient seen has responded to treatment well so far. Plan is for patient to be discharged home. Heart rate remains controlled Objective Data Objective Data Vital Signs: Vital Signs Temp Pulse Resp BP Pulse Ox O2 Del Method 97.9 F 106 H 16 111/60 96 Room Air 12/11/24 06:00 12/11/24 06:00 12/11/24 06:00 12/11/24 06:00 12/11/24 06:00 12/11/24 06:00 Oxygen Delivery Method Room Air Weight: 106.7 kg Body Mass Index (BMI) 39.1 Intake & Output: Intake and Output for Last 24 Hours 12/09/24 12/10/24 12/11/24 23:59 23:59 23:59 Intake Total 755 / 755 854 / 1094 490 / 490 Output Total 300 / 300 Balance 455 / 455 854 / 1094 490 / 490 Lab / Micro Data 12/10/24 05:40 12/10/24 05:40 Radiography Diagnostic Testing: Radiology Impression Echocardiogram 12/09/24 13:38 Interpretation Summary The estimated ejection fraction is 65 %. Diastolic function is indeterminate. There is mild biatrial dilatation. Ordering Physician: Tom Corral Performed By: Augie Prater RCS Physical Exam Narrative GENERAL: cooperative HEENT: Atraumatic; normocephalic EYES; Anicteric, Normal Conjunctiva NECK; supple, normal thyroid, RESPIRATORY: Diminished to auscultation CARDIOVASCULAR: Irregularly irregular, tachycardic GI: soft, normoactive bowel sounds, : No Renal angle tenderness; EXTREMITIES: sera, no clubbing, MUSCULOSKELETAL: no muscle wasting NEURO: Awake; no lateralizing signs. SKIN: No Rash PSYCH; Flat affect Assessment & Plan Assessment/Plan (1) Nephrolithiasis: (2) Flank pain: (3) Hematuria: (4) Atrial fibrillation with normal ventricular rate: (5) CHF exacerbation: PLAN: Plan Patient is a 79-year-old lady presenting with progressive shortness of breath and bipedal edema 1. Acute on chronic congestive heart failure with preserved ejection fraction ? Patient has been admitted to monitored bed management initiated with fluid restriction, strict input and output, daily weights, diuretic therapy. Ordered echo for EF assessment. Also ordered serial cardiac enzymes to rule out ischemia as a possible frustrating course. Patient was counseled on the need to be compliant with therapy including fluid restriction and medications. ? 12/10/2024; patient responded to diuretic therapy. Echo was ordered on admission results pending The estimated ejection fraction is 65 %. Diastolic function is indeterminate. There is mild biatrial dilatation. 2. Paroxysmal A-fib with variable rates ? Patient is on metoprolol for rate control as well as apixaban for systemic anticoagulation did continue with both 12/10/2024; patient heart rates not well-controlled I did Cardizem to treatment regimen 3. Hematuria ? Secondary to nephrolithiasis CT of the abdomen and pelvis demonstrated nonobstructing bilateral intrarenal calculi more prominent in the lower pole of the left kidney 4. Hypertension ? Blood pressure controlled, home medications continued with dose adjustment as needed 5. GERD ? Patient is on PPI continue 6. Class II obesity with BMI of 39.1 ? Complicating care weight loss advised 7. Restless leg syndrome ? Patient is on ropinirole 8. Allergic rhinitis ? Patient is on fluticasone did continue 9. Anemia ? Secondary to chronic disorder. Did order for iron studies as well as B12 levels. Subsequently monitoring H&H and transfuse if patient becomes symptomatic or hemoglobin falls below 7 10. Renal failure ? Chronicity uncertain patient does not have any old records to compare with monitoring with daily BMPs ? 12/10/2024; slight improvement in kidney function 11. DVT prophylaxis ? On apixaban 12. Hypomagnesemia -Corrected for protocol, repeat labs ordered in a.m. for follow-up Time spent in the patient's overall evaluation,decision-making process, review of diagnostic data, adjustment of management, discussion with other providers, nursing nursing and ancillary staff involved in patient's care documentation, 38 Minutes
[2024-12-11 08:30] VITALS: BP 105/60; PULSE 88; RESP 16; TEMP 36.6; O2SAT 94
[2024-12-11] MEDS: Acetaminophen 325 MG Tablet 650 MG PO (08:32)
[2024-12-11 08:42] LABS: Absolute Lymphocyte Count 1.58 X10^3/uL (0.83-4.51); Absolute Neutrophil Count 3.9 X10^3/uL (2.0-7.7); Basophil# 0.04 X10^3/uL; Basophil% 0.6 % (0-1); Eosinophil# 0.28 X10^3/uL; Eosinophils% 4.1 % (0-5); Hematocrit 30.5 % (37-47); Hemoglobin 9.4 g/dL (12.0-15.0); Lymphocyte # 1.58 X10^3/ul (0.83-4.51); Lymphocyte % 23.4 % (19-41); Mean Corp Hgb Conc 30.8 g/dL (32-36); Mean Corpuscular Hgb 27.9 pg (27.0-32.0); Mean Corpuscular Volume 90.5 fL (81-99); Mean Platelet Vol. 10.3 fl (6.2-12.0); Monocyte# 0.95 X10^3/uL; Monocyte% 14.1 % (0-10); NRBC Flagged by Analyzer 0 % (0-5); Neutrophil # 3.89 X10^3/uL (2.7-7.7); Neutrophil % 57.5 % (47-70); Platelet Count 270 K/mm3 (150-450); RBC Distribution Width CV 14.1 % (11.6-14.6); RBC Distribution Width SD 45.9 fl (35.1-43.9); Red Blood Count 3.37 M/mm3 (4.2-5.4); White Blood Count 6.8 K/mm3 (4.4-11.0)
--- NOTE | 2024-12-11 08:42 | PCM.DC.SUM ---
Providers Date of Admission: 12/09/24 Date of Discharge: 12/11/24 Primary Care Physician: Dr. Nic Soriano, DO Reason For Visit: CHF Diagnosis Discharge Diagnosis (1) Nephrolithiasis: Status: Acute Code(s): N20.0 - Calculus of kidney (2) Flank pain: Status: Acute Code(s): R10.9 - Unspecified abdominal pain (3) Hematuria: Status: Acute Code(s): R31.9 - Hematuria, unspecified (4) Atrial fibrillation with normal ventricular rate: Status: Acute Code(s): I48.91 - Unspecified atrial fibrillation (5) CHF exacerbation: Status: Chronic Code(s): I50.9 - Heart failure, unspecified Plan Patient is a 79-year-old lady presenting with progressive shortness of breath and bipedal edema 1. Acute on chronic congestive heart failure with preserved ejection fraction ? Patient has been admitted to monitored bed management initiated with fluid restriction, strict input and output, daily weights, diuretic therapy. Ordered echo for EF assessment. Also ordered serial cardiac enzymes to rule out ischemia as a possible frustrating course. Patient was counseled on the need to be compliant with therapy including fluid restriction and medications. ? 12/10/2024; patient responded to diuretic therapy. Echo was ordered on admission results pending The estimated ejection fraction is 65 %. Diastolic function is indeterminate. There is mild biatrial dilatation. 2. Paroxysmal A-fib with variable rates ? Patient is on metoprolol for rate control as well as apixaban for systemic anticoagulation did continue with both 12/10/2024; patient heart rates not well-controlled I did Cardizem to treatment regimen ? 12/11/2024; patient heart rate had improved at the time of discharge prescription was written for Cardizem CD1 20 mg twice daily. Patient instructed to call her primary care as well as primary hospitality coordinator for subsequent adjustment of therapy 3. Hematuria ? Secondary to nephrolithiasis CT of the abdomen and pelvis demonstrated nonobstructing bilateral intrarenal calculi more prominent in the lower pole of the left kidney 4. Hypertension ? Blood pressure controlled, home medications continued with dose adjustment as needed 5. GERD ? Patient is on PPI continue 6. Class II obesity with BMI of 39.1 ? Complicating care weight loss advised 7. Restless leg syndrome ? Patient is on ropinirole 8. Allergic rhinitis ? Patient is on fluticasone did continue 9. Anemia ? Secondary to chronic disorder. Did order for iron studies as well as B12 levels. Subsequently monitoring H&H and transfuse if patient becomes symptomatic or hemoglobin falls below 7 10. Renal failure ? Chronicity uncertain patient does not have any old records to compare with monitoring with daily BMPs ? 12/10/2024; slight improvement in kidney function 11. DVT prophylaxis ? On apixaban 12. Hypomagnesemia -Corrected for protocol, repeat labs ordered in a.m. for follow-up Time spent in the patient's overall evaluation,decision-making process, review of diagnostic data, adjustment of management, discussion with other providers, nursing nursing and ancillary staff involved in patient's care documentation, 38 Minutes Medications at Discharge Home Medications apixaban 5 mg tablet (Eliquis) 5 mg PO BID BLOOD THINNER 12/09/24 clobetasol 0.05 % topical ointment 1 applic topical DAILY SKIN IRRITATION 12/09/24 diphenhydramine 25 mg-acetaminophen 500 mg tablet (Acetaminophen PM) 1 tab PO QHS PRN sleep 12/09/24 fluoxetine 20 mg capsule 20 mg PO DAILY MOOD 12/09/24 fluticasone propionate 50 mcg/actuation nasal spray,suspension (Flonase Allergy Relief) 1 spray intranasal BID PRN allergy symptoms 12/09/24 metoprolol tartrate 50 mg tablet 50 mg PO Q12H BLOOD PRESSURE 12/09/24 pantoprazole 40 mg tablet,delayed release (Protonix) 40 mg PO DAILY HEARTBURN 12/09/24 ropinirole 1 mg tablet 1 mg PO QHS RESTLESS LEG SYNDROME 12/09/24 diltiazem HCl 120 mg capsule,extended release 24 hr 120 mg PO Q12 #60 caps 12/11/24 furosemide 20 mg tablet (Lasix) 20 mg PO BID FLUID RETENTION #120 tabs 12/11/24 magnesium chloride 64 mg (magnesium chloride) tablet,delayed release (Mag 64) 128 mg (2 x 64 mg) PO BID #30 tabs 12/11/24 Physical Exam Narrative GENERAL: cooperative HEENT: Atraumatic; normocephalic EYES; Anicteric, Normal Conjunctiva NECK; supple, normal thyroid, RESPIRATORY: Diminished to auscultation CARDIOVASCULAR: Irregularly irregular, tachycardic GI: soft, normoactive bowel sounds, : No Renal angle tenderness; EXTREMITIES: edema, no clubbing, MUSCULOSKELETAL: no muscle wasting NEURO: Awake; no lateralizing signs. SKIN: No Rash PSYCH; Flat affect Weight / BMI Weight Weight: 106.7 kg Body Mass Index (BMI) 39.1 ABG / Lab / Microbiology Data 12/10/24 05:40 12/10/24 05:40 Radiography Diagnostic Testing: Radiology Impression Echocardiogram 12/09/24 13:38 Interpretation Summary The estimated ejection fraction is 65 %. Diastolic function is indeterminate. There is mild biatrial dilatation. Ordering Physician: Tom Corral Performed By: Augie Prater RCS D/C Instructions Discharge Diet: 8 Cup Fluid Restriction and 2000 mg Sodium Diet Discharge Activity: Return to Normal Activity Call your doctor if you observe: Fever of 101 or Higher, Shortness of breath, Fainting spells and Chest pain DC O2, CPAP, BIPAP Needs Home O2 Discharge instructions: No Meaningful Use Info Meaningful Use Meaningful Use Diagnoses (Choose all that apply): CHF CHF MAXIMILIAN/ARB ordered at discharge?: No Reason MAXIMILIAN/ARB not ordered?: Not indicated Documented LVEF (%): 65 Ischemic Stroke Statin Dosing Therapy Reference: STATIN DOSE THERAPY REFERENCE: * Patients > 75 years receive moderate or high dose statin therapy. * Patients 75 years or YOUNGER should receive HIGH intensity statin dose unless contraindicated. You will be required to document reason for non-treatment if statin daily dose does not meet guidelines. HIGH DOSE STATIN THERAPY DAILY Atorvastatin > than or = to 40 mg Rosuvastatin > than or = to 20 mg Amlodipine + Atorvastatin > than or = to 2.5/40 mg Ezetimibe + Simvastatin 10/80 mg Simvastatin 80mg Discharge Plan Admission Admit Date/Time: 12/09/24 12:54 Attending Provider: Tom Corral Primary Care Provider: Nic Soriano Discharge Orders/Prescriptions Prescriptions: New diltiazem HCl 120 mg Capsule,Extended Release 24hr 120 mg PO Q12 Qty: 60 0RF magnesium chloride [Mag 64] 64 mg Tablet,Delayed Release (Dr/Ec) 128 mg PO BID Qty: 30 0RF Continued metoprolol tartrate 50 mg tablet 50 mg PO Q12H fluoxetine 20 mg capsule 20 mg PO DAILY Eliquis 5 mg tablet 5 mg PO BID fluticasone propionate [Flonase Allergy Relief] 50 mcg/actuation spray,suspension 1 spray intranasal BID PRN (Reason: allergy symptoms) Rx Instructions: administer into each nostril pantoprazole [Protonix] 40 mg tablet,delayed release (DR/EC) 40 mg PO DAILY ropinirole 1 mg tablet 1 mg PO QHS clobetasol 0.05 % ointment 1 applic topical DAILY diphenhydramine-acetaminophen [Acetaminophen PM] 25-500 mg tablet 1 tab PO QHS PRN (Reason: sleep) Changed furosemide [Lasix] 20 mg tablet 20 mg PO BID Qty: 120 0RF Referrals / Follow Up: Nic Soriano DO [Primary Care Provider] - Within 1 Week Disposition Disposition (needs filled in before D/C Order can be placed): Home, Self Care Charges/Coding Visit Charges Inpatient E&M: 57023 Disch Hosp >30min
[2024-12-11 09:19] VITALS: PULSE 88
[2024-12-11] MEDS: Pantoprazole Sodium 40 MG Tablet PO (09:19)
[2024-12-11] MEDS: FLUoxetine 20 MG Capsule PO (09:19)
[2024-12-11] MEDS: Metoprolol Tartrate 50 MG Tablet PO (09:19)
[2024-12-11] MEDS: Magnesium Chloride 64 MG Delay Rel.Tablet 128 MG PO (09:19)
[2024-12-11] MEDS: APIXABAN 5 MG TABLET PO (09:21)
[2024-12-11] MEDS: dilTIAZem CD 120 MG Capsule PO (09:21)
[2024-12-11 09:28] LABS: Anion Gap 8 (5-15); BUN 24 mg/dL (7-18); BUN/Creat Ratio 19.5 RATIO (10-20); Calcium,Total 8.9 mg/dL (8.5-10.1); Chloride 100 mmol/L (98-107); Creatinine, Serum 1.23 mg/dL (0.55-1.02); EST Glomerular Filtration Rate 45 mL/min (>60); Est Glom Filt Rate - Afr Amer 54 mL/min (>60); Estimated Creatinine Clearance 45.75 ml/min; Glucose 123 mg/dL (74-106); Potassium 3.5 mmol/L (3.5-5.1); Sodium Level 139 mmol/L (136-145)
[2024-12-11 10:28] VITALS: BMI 39.1
--- NOTE | 2024-12-17 16:05 | CCN.REFER ---
RE: Patient Link Referral . TC to patient multiple time, LVM. No return call.
== END 2024-12-11 10:50 | disposition home or self-care (01) | DRG 291 ==
LOC: ED 13:00 → PCU 13:15
PROVIDERS: Admitting Provider Internal Medicine; Emergency Provider Emergency Medicine; PCP Family Medicine; Visit Provider Internal Medicine
DX: I11.0 Hypertensive heart disease with heart failure (principal); I50.33 Acute on chronic diastolic (congestive) heart failure; D64.9 Anemia, unspecified; Z79.01 Long term (current) use of anticoagulants; G25.81 Restless legs syndrome; E66.812 Obesity, class 2; I48.0 Paroxysmal atrial fibrillation; N19 Unspecified kidney failure; J30.9 Allergic rhinitis, unspecified; K21.9 Gastro-esophageal reflux disease without esophagitis; N20.0 Calculus of kidney; Z68.39 Body mass index [BMI] 39.0-39.9, adult; Z79.899 Other long term (current) drug therapy; Z87.891 Personal history of nicotine dependence
CPT/HCPCS: 36415; 71046; 71275; 74177; 80048; 81001; 83735; 83880; 84100; 84484; 85025; 93005; 93306; 97802; 99285; Q9957; Q9967; A4216; C8929; J1940